=== PATIENT | female | born 2000 | race Two or more races ===

== ENCOUNTER 2023-09-16 22:07 | Outpatient (REF) | payer MEDICAID, SELFPAY ==
[2023-09-21 13:07] LABS: Age Gdln ACOG Testing Note (.); IGP, rfx Aptima HPV ASCU Note (.)
== END 2023-09-16 22:08 | disposition home or self-care (01) ==
LOC: LAB 22:07
PROVIDERS: Visit Provider Obstetrics & Gynecology
DX: Z01.419 Encounter for gynecological examination (general) (routine) without abnormal findings (principal)
CPT/HCPCS: G0145

== ENCOUNTER 2024-08-21 17:48 | Emergency (ER) | payer OTHER, SELFPAY ==
[2024-08-21 17:52] VITALS: BP 126/66; PULSE 86; TEMP 36.9; O2SAT 100; BMI 26.6
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
--- NOTE | 2024-08-21 18:08 | CT_ITS ---
The [address] [address] Patient Name: KEYLA NGUYEN MRN: [id number] date: 2000 Sex: F Assigned Patient Location: ED.MAIN Current Patient Location: ED.MAIN Accession/Order Number: [id number] Exam Date: 08/21/2024 18:44 Report Date: 08/21/2024 19:35 At the request of: NOEL ALONZO Procedure: CT head/brain wo con EXAM: CT head/brain wo con HISTORY: headache COMPARISON: None. TECHNIQUE: Axial CT scans through the head were obtained without IV contrast administration. Dose reduction techniques were achieved by using: automated exposure control and/or adjustment of mA and /or kV according to patient size and/or use of iterative reconstruction technique. FINDINGS: There is no acute intracranial hemorrhage or abnormal extra-axial fluid collection. No mass effect or midline shift is seen. There is no evidence of large acute territorial infarction. There is no hydrocephalus. To the limit of CT, the posterior fossa appears unremarkable. The calvaria and extra cranial soft tissues are unremarkable. The visualized orbits show no abnormality. The visualized paranasal sinuses show no air-fluid level. Mastoid air cells are clear. CT/CT head/brain wo con IMPRESSION: No acute intracranial process. Electronically authenticated by: JOSE MIGUEL CUELLO Date: 08/21/2024 19:35
--- NOTE | 2024-08-21 18:08 | XR_ITS ---
The [place] [id number] Patient Name: KEYLA NGUYEN MRN: [id number] date: 2000 Sex: F Assigned Patient Location: ED.MAIN Current Patient Location: ER Accession/Order Number: [id number] Exam Date: 08/21/2024 18:40 Report Date: 08/21/2024 19:40 At the request of: NOEL ALONZO Procedure: XR lumbar spine 2-3V EXAM: XR lumbar spine 2-3V HISTORY: The patient is a 24-year-old female, low back pain COMPARISON: None. FINDINGS: The lumbar spine is radiographically negative with no evidence of fracture, loss of vertebral body height, disc space narrowing, or malalignment. The sacroiliac joints are maintained. XR/XR lumbar spine 2-3V IMPRESSION: Negative. Electronically authenticated by: PRATIK DIEGO Date: 08/21/2024 19:40
[2024-08-21 18:10] VITALS: O2SAT 98
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
[2024-08-21] MEDS: ACETAMINOPHEN 500 MG TABLET 1000 MG PO (18:13)
[2024-08-21] MEDS: ONDANSETRON 4 MG RAPDIS TABLET SL (18:14)
[2024-08-21 18:23] LABS: Bilirubin Urine NEGATIVE (NEGATIVE); Blood Urine NEGATIVE (NEGATIVE); Clarity Urine CLEAR (CLEAR); Color Urine YELLOW (YELLOW); Glucose Urine UA NEGATIVE (NEGATIVE); Ketones Urine TRACE mg/dL (NEGATIVE); Leukocyte Esterase Urine SMALL (NEGATIVE); Nitrite Urine NEGATIVE (NEGATIVE); Protein Urine NEGATIVE (NEG/TRACE); Urobilinogen Urine 0.2 EU/dL (0.2-1.0)
[2024-08-21 18:25] LABS: HCG Qualitative Urine* NEGATIVE (NEGATIVE); Internal Control Within Normal Limits
[2024-08-21 18:26] LABS: Urine Microscopic Indicated YES
[2024-08-21 18:33] LABS: Bacteria Urine MODERATE #/HPF (NONE SEEN); Cast Seen? NONE SEEN #/LPF (NONE SEEN); Crystals Seen? None Seen #/HPF (None Seen); Mucus Urine MODERATE (NONE SEEN); RBC Urine 0-2 #/HPF (0-2); Squamous Epithelial Cell Urine MODERATE #/LPF (NONE/RARE); Urine Culture Indicated YES
[2024-08-21] MEDS: KETOROLAC TROMETHAMINE 60 MG/2 ML VIAL IM (19:25)
[2024-08-21] MEDS: DIAZEPAM 5 MG TABLET PO (19:25)
--- NOTE | 2024-08-26 08:18 | PC.NURSE ---
Urine culture completed and viewed by Maranda ABDULLAHI and no change in .treatment
== END 2024-08-21 19:58 | disposition home or self-care (01) ==
PROVIDERS: Personal Emergency Response Attendant; Emergency Provider Emergency Medicine
DX: S16.1XXA Strain of muscle, fascia and tendon at neck level, initial encounter (principal); S39.012A Strain of muscle, fascia and tendon of lower back, initial encounter; V49.49XA Driver injured in collision with other motor vehicles in traffic accident, initial encounter; R51.9 Headache, unspecified
CPT/HCPCS: 70450; 72100; 72125; 81001; 84703; 87086; 96372; 99285; J1885; Q0162